=== PATIENT | female | born 2000 | race Caucasian/White ===

== ENCOUNTER → 2020-06-01 13:32 | Outpatient (BNVA) | payer MEDICAID, SELFPAY | PROVIDERS: Family Provider Nurse Practitioner Family; PCP Nurse Practitioner Family; Visit Provider Family Medicine | DX: Z11.59 Encounter for screening for other viral diseases (principal); Z20.828 Contact with and (suspected) exposure to other viral communicable diseases; J06.9 Acute upper respiratory infection, unspecified | CPT/HCPCS: 87635 ==

== ENCOUNTER → 2021-01-08 08:25 | Outpatient (BNVA) | payer MEDICAID, SELFPAY | PROVIDERS: Family Provider Nurse Practitioner Family; PCP Nurse Practitioner Family; Visit Provider Psychiatry & Neurology Psychiatry | DX: F41.9 Anxiety disorder, unspecified (principal); F32.9 Major depressive disorder, single episode, unspecified; F41.1 Generalized anxiety disorder | CPT/HCPCS: 90792 ==

== ENCOUNTER → 2021-03-27 10:15 | Outpatient (BNVA) | payer SELFPAY | PROVIDERS: Family Provider Nurse Practitioner Family; PCP Nurse Practitioner Family; Visit Provider Psychiatry & Neurology Psychiatry | DX: F32.9 Major depressive disorder, single episode, unspecified (principal); F41.1 Generalized anxiety disorder; F41.9 Anxiety disorder, unspecified | CPT/HCPCS: 99214 ==

== ENCOUNTER → 2021-04-18 08:49 | Outpatient (BNVA) | payer SELFPAY | PROVIDERS: Family Provider Nurse Practitioner Family; PCP Nurse Practitioner Family; Visit Provider Counselor Professional | DX: F41.1 Generalized anxiety disorder (principal); F43.20 Adjustment disorder, unspecified | CPT/HCPCS: 90834 ==

== ENCOUNTER → 2021-05-28 14:00 | Outpatient (BNVA) | payer SELFPAY | PROVIDERS: Family Provider Nurse Practitioner Family; PCP Nurse Practitioner Family; Visit Provider Nurse Practitioner Family | DX: R30.0 Dysuria (principal) | CPT/HCPCS: 81003; 87491; 87591; 87661 ==

== ENCOUNTER → 2021-06-11 16:30 | Outpatient (BNVA) | payer SELFPAY | PROVIDERS: Family Provider Nurse Practitioner Family; PCP Nurse Practitioner Family; Visit Provider Nurse Practitioner Family | DX: N89.8 Other specified noninflammatory disorders of vagina (principal); R30.0 Dysuria; Z11.3 Encounter for screening for infections with a predominantly sexual mode of transmission; Z72.51 High risk heterosexual behavior | CPT/HCPCS: 81000; 87491; 87591; 87661 ==

== ENCOUNTER → 2021-07-16 16:07 | Outpatient (BNVA) | payer SELFPAY | PROVIDERS: Family Provider Nurse Practitioner Family; PCP Nurse Practitioner Family; Visit Provider Nurse Practitioner Family | DX: N73.9 Female pelvic inflammatory disease, unspecified (principal); Z12.4 Encounter for screening for malignant neoplasm of cervix; N89.8 Other specified noninflammatory disorders of vagina; R30.0 Dysuria | CPT/HCPCS: 87491; 87591; 87624; 87661 ==

== ENCOUNTER → 2021-10-22 08:05 | Outpatient (BNVA) | payer BC, MEDICAID, SELFPAY | PROVIDERS: Family Provider Nurse Practitioner Family; PCP Nurse Practitioner Family; Visit Provider Obstetrics & Gynecology | DX: Z34.90 Encounter for supervision of normal pregnancy, unspecified, unspecified trimester (principal); N92.6 Irregular menstruation, unspecified | CPT/HCPCS: 80307; 81025; 84315; 84443; 85025; 86592; 86762; 86787; 86803; 86850; 86900; 87086; 87340; 87491; 87591; 87661 ==

== ENCOUNTER → 2022-02-25 08:19 | Outpatient (BNVA) | payer BC, MEDICAID, SELFPAY | PROVIDERS: Family Provider Nurse Practitioner Family; PCP Nurse Practitioner Family; Visit Provider Obstetrics & Gynecology | DX: Z34.00 Encounter for supervision of normal first pregnancy, unspecified trimester (principal) | CPT/HCPCS: 82950; 84315; 85025 ==

== ENCOUNTER → 2022-04-08 11:19 | Outpatient (BNVA) | payer MEDICAID, SELFPAY | PROVIDERS: Family Provider Nurse Practitioner Family; PCP Nurse Practitioner Family; Visit Provider Obstetrics & Gynecology | DX: Z34.00 Encounter for supervision of normal first pregnancy, unspecified trimester (principal) | CPT/HCPCS: 84315; 85025 ==

== ENCOUNTER → 2022-04-22 11:15 | Outpatient (BNVA) | payer MEDICAID, SELFPAY | PROVIDERS: Family Provider Nurse Practitioner Family; PCP Nurse Practitioner Family; Visit Provider Obstetrics & Gynecology | DX: Z34.00 Encounter for supervision of normal first pregnancy, unspecified trimester (principal) | CPT/HCPCS: 84315; 87081 ==

== ENCOUNTER → 2022-05-09 10:32 | Outpatient (BNVA) | payer MEDICAID, SELFPAY | PROVIDERS: Family Provider Nurse Practitioner Family; PCP Nurse Practitioner Family; Visit Provider Obstetrics & Gynecology | DX: Z34.00 Encounter for supervision of normal first pregnancy, unspecified trimester (principal) | CPT/HCPCS: 81000 ==

== ENCOUNTER 2022-05-15 18:01 | Outpatient (CLI) | payer MEDICAID, SELFPAY ==
[2022-05-15 18:21] VITALS: BP 122/75; PULSE 87; TEMP 36
[2022-05-15 18:52] VITALS: BP 112/69; PULSE 82
[2022-05-15 19:22] VITALS: BP 112/72; PULSE 93
[2022-05-15 20:21] VITALS: BP 122/85; PULSE 87
[2022-05-15 20:32] VITALS: BMI 28.4
== END 2022-05-15 20:37 | disposition home or self-care (01) ==
LOC: OPOB 18:01 → OBGYN 18:02
PROVIDERS: Family Provider Nurse Practitioner Family; PCP Nurse Practitioner Family; Visit Provider Obstetrics & Gynecology
DX: O47.1 False labor at or after 37 completed weeks of gestation (principal); Z3A.39 39 weeks gestation of pregnancy
CPT/HCPCS: 59025; 99211

== ENCOUNTER 2022-05-16 07:03 | Inpatient (IN) | payer MEDICAID, SELFPAY ==
[2022-05-16] VITALS (69 sets, daily range): BP systolic 98–129; BP diastolic 57–86; PULSE 65–121; RESP 16–18; TEMP 36.2–36.8; O2SAT 97–100; BMI 28.4
[2022-05-16 07:12] LABS: Bilirubin Urine Neg (Negative); Blood Urine 2+ (Negative); Glucose Urine UA Norm (Normal); Ketones Urine Negative (Negative); Leukocyte Esterase Urine Negative (Negative); Nitrate Urine Negative (Negative); Protein Urine Neg (Negative); RBC Urine 0-4 /hpf (0-2); Specific Gravity, Urine 1.015 (1.005-1.030); Urine Appearance Cloudy (CLEAR); Urine Color Yellow (Yellow); Urobilinogen Urine Norm (Negative); pH Urine 6.5 (5-7)
[2022-05-16 07:13] LABS: Add Urine Culture? No; Amorphous Sediment Urine 2+ /hpf; Bacteria Urine 1+ /hpf; Mucus Urine 1+ /hpf
[2022-05-16 07:29] LABS: Basophils # 0.1 10^3/uL (0.0-0.1); Basophils % 0.3 %; Eosinophils # 0.1 10^3/uL (0.0-0.8); Eosinophils % 0.6 %; Hemoglobin 12.2 g/dL (11.5-15.3); Lymphocytes # 1.7 10^3/uL (0.8-4.8); Lymphocytes % 7.8 %; Mean Corpuscular Hemoglobin 28.7 pg (28.0-34.0); Mean Corpuscular Volume 87.1 fl (81-99); Mean Platelet Volume 12.3 fL (7.4-10.4); Monocytes # 1.3 10^3/uL (0.2-0.9); Monocytes % 6.1 %; Neutrophils # 17.75 10^3/uL (1.8-7.7); Nucleated Red Blood Cells % 0 %; Platelet Count 220 10^3/cmm (130-400); Red Blood Count 4.25 10^6/uL (4.1-5.3); Red Cell Distribution Width 13.3 % (12.1-15.1); White Blood Count 21.1 10^3/uL (4.0-10.0)
[2022-05-16] MEDS: lactated ringers 1,000 ML 999 ML IV ×2 (07:30→08:45)
[2022-05-16] MEDS: fentaNYL 50 mcg/mL INJ 2mL IVP (08:01)
--- NOTE | 2022-05-16 08:21 | PM.OPHPUD ---
Labor & Delivery H&P Update Date of Procedure: May 16, 2022 Date H&P Performed: 05/13/22 H&P update information: I have reviewed H&P completed within last 30 days, I have examined patient prior to procedure and Changes to prior documentation as noted here Changes to previous documentation: The patient presents with painful contractions every five minutes. Cervix is now 3-4/60/-2 Admission Diagnosis: Related Problem List Diagnoses (1) Maternal varicella, non-immune: (2) Supervision of normal first :
--- NOTE | 2022-05-16 09:28 | ANES.PREANE2 ---
Pre-Anesthetic Assessment Height/Weight: Height 1.65 m Weight 77.564 kg Temp Pulse Resp BP Pulse Ox 97.2 F L 77 18 109/67 99 05/16/22 08:05 05/16/22 09:11 05/16/22 08:01 05/16/22 09:11 05/16/22 09:06 Familial anesthetic complications: None Was Beta Leandra taken within 24 hours: N/A Was Clonidine taken within 24 hours: N/A Social No alcohol and No tobacco Exam alert, oriented x 3, clear to auscultation bilaterally and regular rate & rhythm Airway Submandibular: within normal limits Cervical ROM: within normal limits Mallampati: Class II Dentition: chipped Pulmonary Asthma CV/HEM Anemia Neuropsych Depression Anesthetic Plan ASA status: 2 Anesthesia: Regional (specify below) (Labor epidural) Medications/Allergies Home Medications Medication Instructions Recorded Confirmed Last Taken Type albuterol sulfate 90 mcg/actuation 2 puff inhalation Q4H PRN 09/09/19 05/15/22 Unknown Rx aerosol inhaler (ProAir HFA) shortness of breath or wheezing 30 days #6.7 grams buspirone 15 mg tablet 15 mg PO BID 30 days #60 tabs 02/21/22 05/15/22 05/14/22 Rx PNV 153-FA 400 mcg-om3 35 mg-dha 1 tab PO DAILY 03/11/22 05/15/22 05/14/22 History 25 mg-epa 5 mg-fish oil chew tablet ( Gummies) ferrous sulfate 325 mg (65 mg 325 mg PO DAILY 03/11/22 05/15/22 Unknown History iron) tablet breast pump #1 ea 05/08/22 05/15/22 Unknown Rx trazodone 50 mg tablet 50 mg PO .qhs 30 days #30 tabs 05/14/22 05/15/22 05/14/22 Rx Allergies Allergy/AdvReac Type Severity Reaction Status Date / Time avocado Allergy Severe mouth will Verified 05/13/22 10:58 itch and a lump in her throat. amoxicillin Allergy rash Verified 05/13/22 10:58 Current Medications Generic Name Dose Route Start Last Admin Trade Name Freq PRN Reason Stop Dose Admin Fentanyl 25 - 100 mcg 05/16/22 07:44 05/16/22 08:01 Fentanyl 50 Mcg/Ml Inj 2ml IVP 25 mcg Q1H PRN Administration SEVERE PAIN PFSH Anesthesia Medical History Allergic rhinitis Depression Generalized anxiety disorder Mild intermittent asthma Psychiatric care Family History Family/Other Cancer Maternal Aunt--brain tumor Mother Hypertension Denies family history of Diabetes CAD (coronary artery disease) Clotting disorder Hyperlipidemia Chronic kidney disease (CKD) Bleeding disorder Thyroid disease Stroke Social History Smoking and tobacco status: current every day smoker Female Reproductive History : 1 Data Anesthesia : 05/16/22 07:15 Short CBC 05/16/22 Range/Units 07:15 WBC 21.1 H (4.0-10.0) 10^3/uL Hgb 12.2 (11.5-15.3) g/dL Hct 37.0 (37.0-47.0) % MCV 87.1 (81-99) fl Plt Count 220 (130-400) 10^3/cmm Neut % (Auto) 84.0 % Neut # (Auto) 17.75 H (1.8-7.7) 10^3/uL Urine 05/16/22 Range/Units 06:28 Urine Color Yellow (Yellow) Urine Appearance Cloudy (CLEAR) Urine pH 6.5 (5-7) Ur Specific [place] 1.015 (1.005-1.030) Urine Protein Neg (Negative) Urine Glucose (UA) Norm (Normal) Urine Ketones Negative (Negative) Urine Nitrate Negative (Negative) Urine Bilirubin Neg (Negative) Ur Leukocyte Esterase Negative (Negative) Urine RBC 0-4 H (0-2) /hpf Urine WBC 5-10 H (0-5) /hpf Cardiac Studies: No Data to Display Anesthesia Procedures Epidural Time Out Performed: Yes Consents Signed: Procedure Consent Consent: requested by attending/covering physician, from patient, risks and benefits reviewed and patient agrees to proceed Lumbar Level: L3-L4 Epidural position: sitting Epidural procedure: sterile prep of area, 1% lidocaine to numb the area, 18 g needle, neg for paresthesia, test dose given, placed PCEA, no systemic response, sterile dressing applied and 0.2% Ropiavacaine @ mls/hr (13) Additional Comments: BALDEMAR at 5cm, cath at 10cm
[2022-05-16] MEDS: oxytocin 30 UNIT/500 ML BAG 999 UNIT IV (15:00)
--- NOTE | 2022-05-16 16:39 | P.PCNOB_ITS ---
Delivery Note: Date of delivery: May 16, 2022 Pre-delivery diagnoses: iup@39 11/05, active labor Post-delivery diagnoses: same, delivered Procedure: Delivering Physician: Gama Estimated blood loss (mL): 10 Pre-Delivery Course: The patient was admitted in active labor. She received an epidural for pain management. She had SROM. She had complete cervical dilation and began pushing. Delivery: The patient had complete cervical dilation and began to push. The head delivered in the CAMILO position over an intact perineum under epidural anesthesia. The nose and mouth were bulb suctioned. The shoulders and body delivered atraumatically. The baby was placed onto the mother's abdomen. The cord was clamped and cut. Cord blood was obtained. The placenta delivered sp ontaneously. It was inspected and found to be intact. Inspection of the perineum revealed no laceration and no repair required. Estimated blood loss 10 mL. Apgars on baby were 8 at 1 minute and 9 at 5 minutes. Weight of baby is 6 pounds 7 ounces. Mother and baby were stable post delivery. 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
[2022-05-16] MEDS: docusate sodium 100 mg Capsule PO (18:39)
[2022-05-16] MEDS: BuSPIRONE 10 mg Tablet 15 MG PO (18:40)
[2022-05-16] MEDS: benzocaine-menthol 78 gm Canister 1 SPRAY TOPICAL (18:40)
[2022-05-16] MEDS: lanolin oint 7 gm 1 APPLIC TOPICAL (18:40)
[2022-05-16] MEDS: ibuprofen 800 mg tablet PO (20:56)
[2022-05-17 01:00] VITALS: BP 116/81; PULSE 80; RESP 16
[2022-05-17 04:35] LABS: Hemoglobin 10.2 g/dL (11.5-15.3); Mean Corpuscular HGB Conc 32.9 g/dL (30.0-36.0); Mean Corpuscular Hemoglobin 29.1 pg (28.0-34.0); Mean Corpuscular Volume 88.3 fl (81-99); Platelet Count 167 10^3/cmm (130-400); Red Blood Count 3.51 10^6/uL (4.1-5.3); Red Cell Distribution Width 13.6 % (12.1-15.1); White Blood Count 19.7 10^3/uL (4.0-10.0)
--- NOTE | 2022-05-17 07:19 | ANE.PACU2 ---
Inpatient post-anesthesia follow up: Airway intact: Yes Vital signs: Temperature 97.7 F Pulse Rate 113 Respiratory Rate 16 Blood Pressure 112/66 Pulse Oximetry 99 Oxygen Delivery Me thod Room Air Oxygen Flow Rate Fraction of Inspir ed Oxygen Hydration adequate: Yes Nausea and vomiting: No Pain level: 2 Mental status: Baseline
--- NOTE | 2022-05-17 08:22 | P.DS_ITS ---
Discharge Providers Date of Admission: 05/16/22 07:03 Date of Discharge: May 17, 2022 Attending Provider at Admission: Selena Malloy MD Attending Provider at Discharge: Selena Malloy MD Primary Care Provider: JEANINE Peña Diagnoses at Discharge Discharge Diagnosis (1) Maternal varicella, non-immune: Status: Acute (2) Supervision of normal first : Status: Acute Reason for Visit Reason for Visit: Contractions Hospital Course Hospital Course The patient was admitted in active labor. She had spontaneous delivery of a term . She did well and requested discharge on day #1 Physical Exam Narrative: The patient is doing well this morning. No concerns. Lochia is normal. ambulating. Tolerating a normal diet. Const: COMMON NORMALS: no acute distress, average body habitus, patient oriented x3, no limitations, healthy appearing, alert and well nourished GENERAL APPEARANCE: cooperative, comfortable, well kempt and well developed ORIENTATION/CONSCIOUSNESS: Yes awake, Yes oriented to person, Yes oriented to place and Yes oriented to time Resp: COMMON NORMALS: normal respiratory effort EFFORT & INSPECTION: Yes able to speak in complete sentences GI: COMMON NORMALS: Soft to palpation and non-tender PALPATION: Yes Soft to palpation Extremity: COMMON NORMALS: no calf tenderness Neuro: COMMON NORMALS: patient oriented x3 SENSORIUM/ORIENTATION: Yes alert, Yes oriented to person, Yes oriented to place and Yes oriented to time Psych: APPEARANCE: Yes well kempt Urinary Catheter Management: Melgar: Cath Placed During This Visit: yes, but has since been removed by the nurse Reason for Continuing Indwelling Catheter: Decision to DC Catheter Urinary Catheter Date of Insertion: 05/16/22 Urinary Catheter Time of Insertion: 10:00 Date Urinary Catheter Removed: 05/16/22 Time Urinary Catheter Discontinued: 14:33 Discharge Data Studies Completed and Pending Laboratory Results WBC 19.7 10^3/uL (4.0-10.0) H 05/17/22 04:33 RBC 3.51 10^6/uL (4.1-5.3) L 05/17/22 04:33 Hgb 10.2 g/dL (11.5-15.3) L 05/17/22 04:33 Hct 31.0 % (37.0-47.0) L 05/17/22 04:33 MCV 88.3 fl (81-99) 05/17/22 04:33 MCH 29.1 pg (28.0-34.0) 05/17/22 04:33 MCHC 32.9 g/dL (30.0-36.0) 05/17/22 04:33 RDW 13.6 % (12.1-15.1) 05/17/22 04:33 Plt Count 167 10^3/cmm (130-400) 05/17/22 04:33 MPV 12.0 fL (7.4-10.4) H 05/17/22 04:33 Neut % (Auto) 84.0 % 05/16/22 07:15 Lymph % (Auto) 7.8 % 05/16/22 07:15 [place] % (Auto) 6.1 % 05/16/22 07:15 Eos % (Auto) 0.6 % 05/16/22 07:15 Baso % (Auto) 0.3 % 05/16/22 07:15 Neut # (Auto) 17.75 10^3/uL (1.8-7.7) H 05/16/22 07:15 Lymph # (Auto) 1.7 10^3/uL (0.8-4.8) 05/16/22 07:15 [place] # (Auto) 1.3 10^3/uL (0.2-0.9) H 05/16/22 07:15 Eos # (Auto) 0.1 10^3/uL (0.0-0.8) 05/16/22 07:15 Baso # (Auto) 0.1 10^3/uL (0.0-0.1) 05/16/22 07:15 Nucleated RBC % (auto) 0 % 05/16/22 07:15 Nucleated RBCs # 0.0 /100WBC 05/16/22 07:15 Urine Color Yellow (Yellow) 05/16/22 06:28 Urine Appearance Cloudy (CLEAR) 05/16/22 06:28 Urine pH 6.5 (5-7) 05/16/22 06:28 Ur Specific [place] 1.015 (1.005-1.030) 05/16/22 06:28 Urine Protein Neg (Negative) 05/16/22 06:28 Urine Glucose (UA) Norm (Normal) 05/16/22 06:28 Urine Ketones Negative (Negative) 05/16/22 06:28 Urine Blood 2+ (Negative) H 05/16/22 06:28 Urine Nitrate Negative (Negative) 05/16/22 06:28 Urine Bilirubin Neg (Negative) 05/16/22 06:28 Urine Urobilinogen Norm mg/dL (Negative) 05/16/22 06:28 Ur Leukocyte Esterase Negative (Negative) 05/16/22 06:28 Urine RBC 0-4 /hpf (0-2) H 05/16/22 06:28 Urine WBC 5-10 /hpf (0-5) H 05/16/22 06:28 Ur Squamous Epith Cells 5-10 /hpf (0-5) H 05/16/22 06:28 Amorphous Sediment 2+ /hpf 05/16/22 06:28 Urine Bacteria 1+ /hpf (NONE) H 05/16/22 06:28 Urine Mucus 1+ /hpf 05/16/22 06:28 Vitals Last Vital Signs Temp 98.3 F 05/16/22 23:00 Pulse 80 05/17/22 01:00 Resp 16 05/17/22 01:00 BP 116/81 05/17/22 01:00 Pulse Ox 99 05/16/22 09:06 O2 Del Method 05/16/22 08:00 Discharge Plan Discharge Patient Disposition: Home Condition: Stable Prescriptions: New ibuprofen 800 mg Tablet 800 mg PO TID Qty: 30 0RF Continued Gummies 400 mcg-35 mg- 25 mg-5 mg tablet,chewable 1 tab PO DAILY ferrous sulfate 325 mg (65 mg iron) tablet 325 mg PO DAILY albuterol sulfate [ProAir HFA] 90 mcg/actuation HFA aerosol inhaler 2 puff INHALATION Q4H PRN (Reason: shortness of breath or wheezing) 30 Days Qty: 6.7 5RF buspirone 15 mg tablet 15 mg PO BID 30 Days Qty: 60 3RF (DME) breast pump Device See Rx Instructions .Route Qty: 1 0RF Rx Instructions: As directed trazodone 50 mg tablet 50 mg PO .qhs 30 Days Qty: 30 3RF Rx Instructions: may take a-half tab or whole tab po HS Discharge Orders: Discharge Order (Routine); Ordered 05/17/22 Ordered By: Selena Malloy Referrals: Selena Malloy MD [Physician] - 05/29/22 8:45 am Patient Instructions: Depression (DC), Bleeding (DC), Preeclampsia and Eclampsia After Delivery (GEN), Hemorrhage (DC), OB Discharge Report, OB Food/Drug Interaction Guide, OB Care at Home, Opioid Safety, OB Home Care, OB Vaginal Deliveries - [facility] Discharge Attestations Time Spent in Discharge Care*: less than 30 min Quality Metrics Clinical Quality Measures [ No reported AMI, CVA or VTE this stay] Coding Level of Care Code Acute Chg FW DC note Diagnoses Maternal varicella, non-immune O09.899; Z28.3 Supervision of normal first Z34.00
[2022-05-17] MEDS: docusate sodium 100 mg Capsule PO ×2 (09:52→16:34)
[2022-05-17] MEDS: ibuprofen 800 mg tablet PO ×2 (09:52→16:33)
[2022-05-17] MEDS: prenatal vitamin Capsule 1 CAP PO (09:52)
[2022-05-17] MEDS: BuSPIRONE 10 mg Tablet 15 MG PO (09:53)
[2022-05-17 10:00] VITALS: BP 100/66; PULSE 106; RESP 16; TEMP 36.5; O2SAT 99
[2022-05-17] MEDS: lanolin oint 7 gm 1 APPLIC TOPICAL (16:34)
[2022-05-17 18:00] VITALS: BP 105/70; PULSE 90; RESP 16; TEMP 36.7; O2SAT 98
== END 2022-05-17 18:00 | disposition home or self-care (01) | DRG 807 ==
LOC: OPOB 07:04 → OBGYN 07:04
PROVIDERS: Admitting Provider Obstetrics & Gynecology; Family Provider Nurse Practitioner Family; PCP Nurse Practitioner Family; Visit Provider Obstetrics & Gynecology
DX: O99.344 Other mental disorders complicating childbirth (principal); Z37.0 Single live birth; O99.52 Diseases of the respiratory system complicating childbirth; O99.334 Smoking (tobacco) complicating childbirth; F17.290 Nicotine dependence, other tobacco product, uncomplicated; Z3A.39 39 weeks gestation of pregnancy; J45.20 Mild intermittent asthma, uncomplicated
CPT/HCPCS: 36415; 51702; 59025; 59409; 81001; 85025; 85027; 99211; J2795; J3010

== ENCOUNTER → 2022-07-10 10:58 | Outpatient (BNVA) | payer MEDICAID, SELFPAY | PROVIDERS: Family Provider Nurse Practitioner Family; PCP Nurse Practitioner Family; Visit Provider Obstetrics & Gynecology | DX: Z12.4 Encounter for screening for malignant neoplasm of cervix (principal) | CPT/HCPCS: 88175 ==

== ENCOUNTER → 2022-07-30 10:24 | Outpatient (BNVA) | payer MEDICAID, SELFPAY | PROVIDERS: Family Provider Nurse Practitioner Family; PCP Nurse Practitioner Family; Visit Provider Nurse Practitioner Family | DX: J02.9 Acute pharyngitis, unspecified (principal); J40 Bronchitis, not specified as acute or chronic; R05.9 Cough, unspecified | CPT/HCPCS: 87071; 87486; 87581; 87633; 87880 ==

== ENCOUNTER → 2023-07-02 14:45 | Outpatient (BNVA) | payer MEDICAID, SELFPAY | PROVIDERS: Family Provider Nurse Practitioner Family; PCP Nurse Practitioner Family; Visit Provider Nurse Practitioner Family | DX: M54.6 Pain in thoracic spine (principal); M54.9 Dorsalgia, unspecified | CPT/HCPCS: 72072; 72100 ==

== ENCOUNTER → 2025-04-29 08:41 | Outpatient (BNVA) | payer MEDICAID, SELFPAY | PROVIDERS: Family Provider Nurse Practitioner Family; PCP Nurse Practitioner Family; Visit Provider Clinical Nurse Specialist Adult Health | DX: J06.9 Acute upper respiratory infection, unspecified (principal) | CPT/HCPCS: 87071; 87880 ==